=== PATIENT | male | born 1935 | race Caucasian/White ===

== ENCOUNTER → 2016-07-01 | Outpatient (CLI) | payer MEDICARE ==
[2016-07-01 15:04] LABS: BUN 0 mg/dL (7-18)
[2016-07-01 15:06] LABS: GFR (ESTIMATED) 49 ML/MIN (>60); PROSTATE-SPECIFIC AG SCREEEN < 0.1 ng/mL (0.0-4.0)
== END ==
LOC: CARL-LAB 07:06
PROVIDERS: Family Medicine
DX: E78.00 Pure hypercholesterolemia, unspecified (principal); Z12.5 Encounter for screening for malignant neoplasm of prostate
CPT/HCPCS: G0103